=== PATIENT | female | born 1965 | race Caucasian/White ===

== ENCOUNTER → 2020-08-15 | Outpatient (CLI) | payer OTHER ==
[~2020-08-15] MED LIST: AMLODIPINE BESY10 MG PO; ASPIRIN325 PO; FORTAMET500 MG PO; IMDUR 60 MG TAB60 M1 PO; LASIX 40 MG TAB40 M2 PO; LISINOPRIL20 MG PO; LOPRESSOR100 M1 PO; PRAVACHOL40 MG PO
== END ==
LOC: SJCVCIMAG 06-08 09:05
PROVIDERS: ATTEND Internal Medicine
DX: I65.23 Occlusion and stenosis of bilateral carotid arteries (principal); I37.1 Nonrheumatic pulmonary valve insufficiency; I25.10 Atherosclerotic heart disease of native coronary artery without angina pectoris; R06.00 Dyspnea, unspecified; E78.5 Hyperlipidemia, unspecified; E11.9 Type 2 diabetes mellitus without complications